=== PATIENT | male | born 1955 | race Caucasian/White ===

== ENCOUNTER → 2016-09-28 | Outpatient (CLI) | payer OTHER ==
[~2016-09-28] MED LIST: ALBUAER2 INH; ASPI-435; BECL0.3A; CIPR-255 PO; FLNIN NAE; LISI10TA PO; NXM/40 PO; SIMV10TA2 PO
[2016-09-28 09:50] LABS: ALT/SGPT 44 U/L (12-78); AST/SGOT 35 U/L (15-37); BLOOD UREA NITROGEN 24 mg/dl (7-18); BUN/CREATININE RATIO 21.7 (10-20); CALCIUM 9.2 mg/dl (8.5-10.1); CARBON DIOXIDE 28 mmol/L (21-32); CHLORIDE 104 mmol/L (98-107); GLUCOSE 96 mg/dl (70-99); POTASSIUM 3.9 mmol/L (3.5-5.1); SODIUM 141 mmol/L (136-145)
[2016-09-28 09:52] LABS: CHOLESTEROL 190 mg/dl (0-200); CHOLESTEROL/HDL RATIO 2.8; HDL CHOLESTEROL 67 mg/dl; LDL CHOLESTEROL CALCULATED 108 mg/dl; TRIGLYCERIDES 75 mg/dl (0-150); VERY LOW DENSITY LIPOPROT CALC 15 mg/dl
--- NOTE | 2016-10-02 11:44 | CODING QUERY NO DIAGNOSIS ---
TREATMENT RENDERED WITHOUT A DIAGNOSIS To promote full compliance with coding requirements relating to patient care, physician participation is requested in all cases of secretary office clerk uncertainty. Please assist us with providing a diagnosis/symptom for the test(s) below: A diagnosis/symptom was not documented on your Order. A valid diagnosis/symptom is required to bill all insurances. Please remember that we are unable to code a diagnosis of rule out, probable, possible, questionable, or suspected. DOS: 09/28/16 Tests that require a diagnosis: * ALT/SGPT DIAGNOSIS: * AST/SGOT DIAGNOSIS: * CREATINE PHOSPHOKINASE DIAGNOSIS: * LIPID PROFILE FASTING DIAGNOSIS: * PARTIAL RENAL PROFILE DIAGNOSIS: Provider Signature: Date: Thank you Yesenia [facility] Information [facility] Once completed, please kindly fax back to [phone] For questions please call [phone]
== END | disposition home or self-care (01) ==
LOC: C.LAB 07:08
DX: E78.5 Hyperlipidemia, unspecified (principal); I10 Essential (primary) hypertension

== ENCOUNTER → 2017-11-23 | Outpatient (CLI) | payer OTHER ==
--- NOTE | 2017-11-23 14:21 | ECHOCARDIOGRAM REPORT ---
*NOTICE TO RECEIVING [employer] This information is strictly Confidential and protected under [place] law. [place] law prohibits you from making any further disclosure of this information unless further disclosure is expressly permitted by the written consent of the person to whom it pertains or is authorized by law. A general authorization for the release of medical or other information is not sufficient for this purpose. Hospital accepts no responsibility if the information is made available to any other person, INCLUDING THE PATIENT. Interpretation Summary * Name: RUTH ROBBINS Study Date: 11/23/2017 12:30 PM BP: 140/74 mmHg * Patient Location: [facility] HR: 50 * : 1955 (M/d/yyyy) Gender: Male Height: 63 in * Age: 62 yrs Ethnicity: [place] Weight: 170 lb * Ordering Physician: Martir Marquez * Referring Physician: Martir Marquez D.O. * Performed By: Jen Mccormick RDCS * * Reason For Study: Systolic Murmur Change * BSA: 1.8 m2 * -- Conclusions -- * Left ventricular systolic function is normal. * Diastolic dysfunction, Grade III (restrictive pattern), consistent with markedly increased left atrial pressure. * Aortic valve sclerosis moderate, without significant aortic valvular stenosis. * There is mild mitral regurgitation. * Right ventricular systolic pressure is normal. Procedure Details * A complete two-dimensional transthoracic echocardiogram was performed (2D, M-mode, Doppler and color flow Doppler). Left Ventricle * The left ventricle is normal in size. * There is normal left ventricular wall thickness. * Ejection Fraction = 60-65%. * Left ventricular systolic function is normal. * Diastolic dysfunction, Grade III (restrictive pattern), consistent with markedly increased left atrial pressure. Right Ventricle * The right ventricle is normal in size and function. * The right ventricular systolic function is normal as assessed by tricuspid annular plane systolic excursion (TAPSE) (normal >1.5 cm). Atria * The left atrial size is normal. * Right atrial size is normal. Mitral Valve * The mitral valve anatomy is normal. * There is mild mitral regurgitation. Tricuspid Valve * The tricuspid valve is not well visualized, but is grossly normal. * There is mild tricuspid regurgitation. * Right ventricular systolic pressure is normal. Aortic Valve * Aortic valve sclerosis moderate, without significant aortic valvular stenosis. * No hemodynamically significant valvular aortic stenosis. * There is no significant aortic regurgitation. Pulmonic Valve * The pulmonic valve is not well visualized. Great Vessels * The aortic root is normal size. MMode 2D Measurements and Calculations IVSd 0.94 cm IVSs 1.5 cm LVIDd 4.2 cm LVIDs 2.7 cm LVPWd 0.96 cm LVPWs 1.2 cm IVS/LVPW 0.98 FS 37.1 % EDV(Teich) 79.9 ml ESV(Teich) 26.0 ml EF(Teich) 67.4 % EDV(cubed) 75.7 ml ESV(cubed) 18.8 ml EF(cubed) 75.1 % % IVS thick 58.5 % % LVPW thick 29.3 % LV mass(C)d 129.9 grams LV mass(C)dI 72.0 grams/m\S\2 LV mass(C)s 116.0 grams LV mass(C)sI 64.3 grams/m\S\2 SV(Teich) 53.9 ml SI(Teich) 29.9 ml/m\S\2 SV(cubed) 56.9 ml SI(cubed) 31.5 ml/m\S\2 Ao root diam 2.8 cm Ao root area 6.4 cm\S\2 ACS 1.2 cm LA dimension 3.6 cm asc Aorta Diam 3.3 cm LA/Ao 1.3 LVOT diam 2.0 cm LVOT area 3.0 cm\S\2 LVAd ap4 31.2 cm\S\2 LVLd ap4 8.6 cm EDV(MOD-sp4) 93.6 ml EDV(sp4-el) 96.4 ml LVAs ap4 16.9 cm\S\2 LVLs ap4 6.9 cm ESV(MOD-sp4) 35.0 ml ESV(sp4-el) 35.1 ml EF(MOD-sp4) 62.6 % EF(sp4-el) 63.6 % LVAd ap2 25.7 cm\S\2 LVLd ap2 8.4 cm EDV(MOD-sp2) 69.9 ml EDV(sp2-el) 67.2 ml LVAs ap2 14.5 cm\S\2 LVLs ap2 6.9 cm ESV(MOD-sp2) 27.6 ml ESV(sp2-el) 25.7 ml EF(MOD-sp2) 60.5 % EF(sp2-el) 61.8 % LVLd %diff -2.63 % EDV(MOD-bp) 81.3 ml LVLs %diff 0.49 % ESV(MOD-bp) 31.1 ml EF(MOD-bp) 61.7 % SV(MOD-sp4) 58.6 ml SI(MOD-sp4) 32.5 ml/m\S\2 SV(MOD-sp2) 42.4 ml SI(MOD-sp2) 23.5 ml/m\S\2 SV(MOD-bp) 50.2 ml SI(MOD-bp) 27.8 ml/m\S\2 SV(sp4-el) 61.3 ml SI(sp4-el) 34.0 ml/m\S\2 SV(sp2-el) 41.5 ml SI(sp2-el) 23.0 ml/m\S\2 Doppler Measurements and Calculations MV E max yeni 107.1 cm/sec MV A max yeni 100.7 cm/sec MV E/A 1.1 MV dec time 0.26 sec Ao V2 max 233.2 cm/sec Ao max PG 22.0 mmHg Ao max PG (full) 15.9 mmHg Ao V2 mean 140.4 cm/sec Ao mean PG 9.4 mmHg Ao mean PG (full) 6.4 mmHg Ao V2 VTI 44.8 cm EMLIIE(I,A) 1.8 cm\S\2 EMILIE(I,D) 1.8 cm\S\2 EMILIE(V,A) 1.6 cm\S\2 EMILIE(V,D) 1.6 cm\S\2 LV V1 max PG 6.1 mmHg LV V1 mean PG 3.0 mmHg LV V1 max 123.2 cm/sec LV V1 mean 79.8 cm/sec LV V1 VTI 26.2 cm MR max eyni 547.4 cm/sec MR max PG 119.9 mmHg MR mean yeni 400.9 cm/sec MR mean PG 71.5 mmHg MR VTI 158.7 cm SV(Ao) 284.9 ml SI(Ao) 157.9 ml/m\S\2 SV(LVOT) 78.9 ml SI(LVOT) 43.7 ml/m\S\2 PA V2 max 132.4 cm/sec PA max PG 7.1 mmHg TR max yeni 215.5 cm/sec
== END | disposition home or self-care (01) ==
LOC: C.CPL 13:04
DX: R01.1 Cardiac murmur, unspecified (principal)

== ENCOUNTER → 2018-01-13 | Outpatient (CLI) | payer OTHER ==
[2018-01-13 14:55] LABS: BASO % 0.4 %; BASO ABS # 0.03 K/uL (0-0.2); EOS ABS # 0.15 K/uL (0-0.5); HEMATOCRIT 43.9 % (42-52); HEMOGLOBIN 15.5 g/dL (14.0-18.0); IG# 0.01 K/uL (0.00-0.02); LYMPH % 23.3 %; LYMPH ABS # 1.77 K/uL (1.2-3.4); MEAN CELL VOLUME 92.2 fL (80-100); MEAN CORPUSCULAR HEMOGLOBIN 32.6 pg (25-34); MEAN CORPUSCULAR HGB CONC 35.3 g/dl (32-36); MEAN PLATELET VOLUME 9.6 fL (7.4-10.4); MONO % 9.3 %; MONO ABS # 0.71 K/uL (0.11-0.59); NEUT % 64.9 %; NEUT ABS # 4.93 K/uL (1.4-6.5); PLATELET COUNT 292 K/uL (130-400); RED CELL DISTRIBUTION WIDTH CV 13.2 % (11.5-14.5); RED CELL DISTRIBUTION WIDTH SD 44.7 fL (36.4-46.3)
[2018-01-13 15:01] LABS: PTT PATIENT 28.5 SECONDS (21.0-31.0)
[2018-01-13 15:23] LABS: ALBUMIN 3.9 gm/dl (3.4-5.0); ALKALINE PHOSPHATASE 87 U/L (45-117); ALT/SGPT 42 U/L (12-78); AST/SGOT 23 U/L (15-37); BLOOD UREA NITROGEN 20 mg/dl (7-18); CALCIUM 9.1 mg/dl (8.5-10.1); CARBON DIOXIDE 29 mmol/L (21-32); CREATININE 1.08 mg/dl (0.60-1.40); GLUCOSE 92 mg/dl (70-99); POTASSIUM 3.8 mmol/L (3.5-5.1); SODIUM 138 mmol/L (136-145)
== END | disposition home or self-care (01) ==
LOC: C.CPL 13:14
DX: Z01.812 Encounter for preprocedural laboratory examination (principal); C61 Malignant neoplasm of prostate